=== PATIENT | male | born 1950 | race Caucasian/White ===

== ENCOUNTER 2018-08-30 18:42 | Inpatient (IN) ==
--- NOTE | 2018-08-30 20:05 | XR ---
EXAM DATE: 08/30/2018 8:03 PM EST AGE/SEX: 68 years / Male INDICATIONS: Chest pain. CLINICAL DATA: This is the patient's initial encounter. Patient reports that signs and symptoms have been present for 1 day and indicates a pain score of 5/10. MEDICAL/SURGICAL HISTORY: None. . Cardiac stent. COMPARISON: No prior exams available for comparison. FINDINGS: The lungs are clear without infiltrate, nodule, or mass. There is no appreciable pleural e ffusion for technique. Heart and mediastinum are unremarkable. CONCLUSION: No acute cardiopulmonary disease. Electronically signed by: Remigio Diaz MD Board Certified Radiologist 08/30/2018 8:03 PM EST
[2018-08-30 20:34] LABS: Baso # (Auto) 0.1 th/mm3 (0.0-0.2); Baso % (Auto) 0.9 % (0.0-2.0); Eos # (Auto) 0.1 th/mm3 (0.0-0.4); Eos % (Auto) 1.5 % (0.0-4.0); Hematocrit 43.8 % (39.0-51.0); Lymph # (Auto) 1.5 th/mm3 (1.0-4.8); Lymph % (Auto) 22.2 % (9.0-44.0); Mean Corpuscular HGB Conc 34.3 % (32.0-36.0); Mean Corpuscular Hemoglobin 31.7 pg (27.0-34.0); Mean Corpuscular Volume 92.3 fL (80.0-100.0); Mean Platelet Volume 8.7 fL (7.0-11.0); Mono # (Auto) 0.6 th/mm3 (0.0-0.9); Mono % (Auto) 9.1 % (0.0-8.0); Neut # (Auto) 4.4 th/mm3 (1.8-7.7); Neut % (Auto) 66.3 % (16.0-70.0); Platelet Count 210 th/mm3 (150-450); Red Blood Count 4.75 mil/mm3 (4.50-5.90); Red Cell Distribution Width 13.1 % (11.6-17.2); White Blood Count 6.7 th/mm3 (4.0-11.0)
[2018-08-30 20:44] LABS: Bilirubin,Urine Negative (Negative); Clarity,Urine Clear (Clear); Color,Urine Yellow (Yellw/Straw); Glucose,Urine (UA) Negative (Negative); Leukocyte Esterase,Urine Negative (Negative); Nitrite,Urine Negative (Negative); Specific Gravity,Urine 1.016 (1.002-1.035); Squamous Epithelial Cell,Urine <1 /hpf (0-5)
[2018-08-30 20:48] LABS: Alanine Aminotransferase 72 U/L (12-78)
[2018-08-30 20:50] LABS: Albumin 3.9 g/dL (3.4-5.0); Anion Gap 9 meq/L (5-15); Aspartate Aminotransferase 65 U/L (15-37); Blood Urea Nitrogen 20 mg/dL (7-18); Carbon Dioxide 28.2 meq/L (21.0-32.0); Chloride 105 meq/L (98-107); Glomerular Filtration Rate 67 mL/min (>89); Glucose,Random 81 mg/dL (74-106); Potassium 3.7 meq/L (3.5-5.1); Sodium 142 meq/L (136-145)
[2018-08-30 20:52] LABS: Alkaline Phosphatase 107 U/L (45-117)
[2018-08-30] MEDS ORDERED: Heparin Drip 25,000 UNIT/250 ML BAG IV.CONT PRN (20:59)
[2018-08-30] MEDS ORDERED: Heparin 10,000 UNITS/10 ML Vial (for IV use) IV.PUSH STA (20:59)
--- NOTE | 2018-08-30 21:10 | ED ---
HPI General Chief Complaint: Chest Pain Stated Complaint: Chest Pain Time Seen by Provider: 08/30/18 19:21 Source: patient Mode of arrival: ambulatory Limitations: no limitations History of Present Illness HPI narrative: 68-year-old male came to the emergency with his with history of substernal chest pain that started around 6:30 PM and was at rest. Patient says that it felt like somebody was pushing on the chest. No radiation of the pain. No aggravating or relieving symptoms identified. Patient had less severe chest pain in the same area 1 week back and patient did not decide to come in at that time. He took 1 nitro today which made the pain little better. Currently he is less than 1 out of 10. He says he has a high tolerance for pain. Patient does have history of coronary artery disease. He had one stent placed 5 years back. His team automobile assembler is Dr. Page. Vital signs are stable. Patient took 1 baby aspirin in the morning. Patient says that he had a stress test probably within the last [address] Page. Patient's good friend as well as a team automobile assembler Dr. Vela was here who saw the patient as well. Related Data Home Medications Medication Instructions Recorded Confirmed Multi Vitamin 1 tab PO DAILY 08/30/18 08/30/18 aspirin [Aspir-81] 81 mg PO EVERY OTHER DAY 08/30/18 08/30/18 atorvastatin 40 mg PO DAILY 08/30/18 08/30/18 isosorbide mononitrate 30 mg PO QAM 08/30/18 08/30/18 lansoprazole [Prevacid] 30 mg PO DAILY 08/30/18 08/30/18 montelukast 10 mg PO QPM 08/30/18 08/30/18 ticagrelor 90 mg PO BID 08/30/18 08/30/18 valacyclovir 500 mg PO DAILY 08/30/18 08/30/18 Allergies Allergy/AdvReac Type Severity Reaction Status Date / Time No Known Allergies Allergy Verified 08/30/18 18:47 Review of Systems ROS: all other systems reviewed are negative [facility] Medical History Medical History High cholesterol (Acute) Surgical History Surgical History Stented coronary artery (Acute) Social History Social History Substance History: No History of Abuse Second Hand Smoke Exposure: No Smoking Status: Former smoker Tobacco Type: Cigarettes How Often Do You Have a Drink Containing Alcohol: Never Recent Travel in [facility] within the Last 8 Weeks: No Recent Out of Country Travel within the Last 8 Weeks: No Immunization History Tetanus Immunization: <5 Years Exam Narrative Exam Narrative: GENERAL: Awake, alert, no obvious distress SKIN: Focused skin assessment warm/dry. HEAD: Atraumatic. Normocephalic. EYES: Pupils equal and round. No scleral icterus. No injection or drainage. ENT: No nasal bleeding or discharge. Mucous membranes pink and moist. NECK: Trachea midline. No JVD. CARDIOVASCULAR: Regular rate and rhythm. No murmur appreciated. RESPIRATORY: No accessory muscle use. Clear to auscultation. Breath sounds equal bilaterally. GASTROINTESTINAL: Abdomen soft, non-tender, nondistended. Hepatic and splenic margins not palpable. MUSCULOSKELETAL: No obvious deformities. No clubbing. No cyanosis. No edema. NEUROLOGICAL: Awake and alert. No obvious cranial nerve deficits. Motor grossly within normal limits. Normal speech. PSYCHIATRIC: Appropriate mood and affect; insight and judgment normal. Course Initial Documented Vital Signs Temperature 97.9 F 08/30/18 18:44 Pulse Rate 56 L 08/30/18 18:44 Respiratory Rate 20 08/30/18 18:44 Blood Pressure 171/82 H 08/30/18 18:44 Pulse Oximetry 99 08/30/18 18:44 Last Documented Vital Signs Temperature 97.5 F L 08/31/18 14:01 Pulse Rate 53 L 08/31/18 17:00 Respiratory Rate 16 08/31/18 17:00 Blood Pressure 138/77 08/31/18 17:00 Pulse Oximetry 97 08/31/18 17:00 Medical Decision Making MDM Narrative Medical decision making narrative: 9:13 PM blood test results are back and within acceptable limit. Given his prior cardiac history and this being a possible unstable angina I have started him on heparin bolus and drip. Dr. Vela thought that was reasonable. He contacted Dr. page over the phone and he wishes the patient to be admitted medically and he will seen in the morning. Patient knows about this plan. Medical Screen Exam Complete: Yes Emergency Medical Condition: Yes Lab Data Result diagrams: 08/31/18 03:45 08/31/18 03:45 Lab Results 08/30/18 08/30/18 08/30/18 Range/Units 18:55 19:35 19:35 WBC 6.7 (4.0-11.0) th/mm3 RBC 4.75 (4.50-5.90) mil/mm3 Hgb 15.0 (13.0-17.0) gm/dL Hct 43.8 (39.0-51.0) % MCV 92.3 (80.0-100.0) fL MCH 31.7 (27.0-34.0) pg MCHC 34.3 (32.0-36.0) % RDW 13.1 (11.6-17.2) % Plt Count 210 (150-450) th/mm3 MPV 8.7 (7.0-11.0) fL Neut % (Auto) 66.3 (16.0-70.0) % Lymph % (Auto) 22.2 (9.0-44.0) % [place] % (Auto) 9.1 H (0.0-8.0) % Eos % (Auto) 1.5 (0.0-4.0) % Baso % (Auto) 0.9 (0.0-2.0) % Neut # (Auto) 4.4 (1.8-7.7) th/mm3 Lymph # (Auto) 1.5 (1.0-4.8) th/mm3 [place] # (Auto) 0.6 (0.0-0.9) th/mm3 Eos # (Auto) 0.1 (0.0-0.4) th/mm3 Baso # (Auto) 0.1 (0.0-0.2) th/mm3 WBC Differential . Differential Comment Auto diff final PT (9.8-11.6) sec INR Ratio APTT (23.4-31.7) sec Sodium 142 (136-145) meq/L Potassium 3.7 (3.5-5.1) meq/L Chloride 105 (98-107) meq/L Carbon Dioxide 28.2 (21.0-32.0) meq/L Anion Gap 9 (5-15) meq/L BUN 20 H (7-18) mg/dL Creatinine 1.09 (0.60-1.30) mg/dL Estimated GFR 67 L (>89) mL/min Random Glucose 81 (74-106) mg/dL Hemoglobin A1c (4.3-6.0) % Calcium 9.0 (8.5-10.1) mg/dL Total Bilirubin 0.4 (0.2-1.0) mg/dL AST 65 H (15-37) U/L ALT 72 (12-78) U/L Alkaline Phosphatase 107 (45-117) U/L Troponin I Less than 0.02 L (0.02-0.05) ng/mL Total Protein 7.0 (6.4-8.2) g/dL Albumin 3.9 (3.4-5.0) g/dL Triglycerides (42-150) mg/dL Cholesterol (120-200) mg/dL LDL Cholesterol, Calc (0-99) mg/dL HDL Cholesterol (40.0-60.0) mg/dL Cholesterol/HDL Ratio Ratio Urine Color Yellow (Yellw/Straw) Urine Clarity Clear (Clear) Urine pH 5.0 (5.0-8.5) Ur Specific [place] 1.016 (1.002-1.035) Urine Protein Negative (Neg-Trace) mg/dL Urine Glucose (UA) Negative (Negative) mg/dL Urine Ketones Negative (Negative) mg/dL Urine Occult Blood Small H (Negative) Urine Nitrate Negative (Negative) Urine Bilirubin Negative (Negative) Urine Urobilinogen Less than 2 (Less than 2) mg/dL Ur Leukocyte Esterase Negative (Negative) Urine RBC Less than 1 (0-3) /hpf Urine WBC 1 (0-5) /hpf Ur Squamous Epith Cells <1 (0-5) /hpf Micro UA Comment Culture not ind Ur Microscopic Review Not Reportable Urine Culture Comments Culture not ind 08/30/18 08/31/18 08/31/18 Range/Units 21:20 01:02 03:45 WBC (4.0-11.0) th/mm3 RBC (4.50-5.90) mil/mm3 Hgb (13.0-17.0) gm/dL Hct (39.0-51.0) % MCV (80.0-100.0) fL MCH (27.0-34.0) pg MCHC (32.0-36.0) % RDW (11.6-17.2) % Plt Count (150-450) th/mm3 MPV (7.0-11.0) fL Neut % (Auto) (16.0-70.0) % Lymph % (Auto) (9.0-44.0) % [place] % (Auto) (0.0-8.0) % Eos % (Auto) (0.0-4.0) % Baso % (Auto) (0.0-2.0) % Neut # (Auto) (1.8-7.7) th/mm3 Lymph # (Auto) (1.0-4.8) th/mm3 [place] # (Auto) (0.0-0.9) th/mm3 Eos # (Auto) (0.0-0.4) th/mm3 Baso # (Auto) (0.0-0.2) th/mm3 WBC Differential Differential Comment PT 10.5 (9.8-11.6) sec INR 1.0 Ratio APTT 25.6 49.2 H D (23.4-31.7) sec Sodium (136-145) meq/L Potassium (3.5-5.1) meq/L Chloride (98-107) meq/L Carbon Dioxide (21.0-32.0) meq/L Anion Gap (5-15) meq/L BUN (7-18) mg/dL Creatinine (0.60-1.30) mg/dL Estimated GFR (>89) mL/min Random Glucose (74-106) mg/dL Hemoglobin A1c (4.3-6.0) % Calcium (8.5-10.1) mg/dL Total Bilirubin (0.2-1.0) mg/dL AST (15-37) U/L ALT (12-78) U/L Alkaline Phosphatase (45-117) U/L Troponin I Less than 0.02 L (0.02-0.05) ng/mL Total Protein (6.4-8.2) g/dL Albumin (3.4-5.0) g/dL Triglycerides (42-150) mg/dL Cholesterol (120-200) mg/dL LDL Cholesterol, Calc (0-99) mg/dL HDL Cholesterol (40.0-60.0) mg/dL Cholesterol/HDL Ratio Ratio Urine Color (Yellw/Straw) Urine Clarity (Clear) Urine pH (5.0-8.5) Ur Specific [place] (1.002-1.035) Urine Protein (Neg-Trace) mg/dL Urine Glucose (UA) (Negative) mg/dL Urine Ketones (Negative) mg/dL Urine Occult Blood (Negative) Urine Nitrate (Negative) Urine Bilirubin (Negative) Urine Urobilinogen (Less than 2) mg/dL Ur Leukocyte Esterase (Negative) Urine RBC (0-3) /hpf Urine WBC (0-5) /hpf Ur Squamous Epith Cells (0-5) /hpf Micro UA Comment Ur Microscopic Review Urine Culture Comments 08/31/18 08/31/18 08/31/18 Range/Units 03:45 03:45 03:45 WBC 4.6 (4.0-11.0) th/mm3 RBC 4.42 L (4.50-5.90) mil/mm3 Hgb 14.0 (13.0-17.0) gm/dL Hct 40.6 (39.0-51.0) % MCV 91.8 (80.0-100.0) fL MCH 31.7 (27.0-34.0) pg MCHC 34.5 (32.0-36.0) % RDW 13.0 (11.6-17.2) % Plt Count 181 (150-450) th/mm3 MPV 8.9 (7.0-11.0) fL Neut % (Auto) 60.0 (16.0-70.0) % Lymph % (Auto) 27.5 (9.0-44.0) % [place] % (Auto) 9.4 H (0.0-8.0) % Eos % (Auto) 2.1 (0.0-4.0) % Baso % (Auto) 1.0 (0.0-2.0) % Neut # (Auto) 2.7 (1.8-7.7) th/mm3 Lymph # (Auto) 1.3 (1.0-4.8) th/mm3 [place] # (Auto) 0.4 (0.0-0.9) th/mm3 Eos # (Auto) 0.1 (0.0-0.4) th/mm3 Baso # (Auto) 0.0 (0.0-0.2) th/mm3 WBC Differential . Differential Comment Auto diff final PT (9.8-11.6) sec INR Ratio APTT (23.4-31.7) sec Sodium 145 (136-145) meq/L Potassium 3.6 (3.5-5.1) meq/L Chloride 108 H (98-107) meq/L Carbon Dioxide 28.6 (21.0-32.0) meq/L Anion Gap 8 (5-15) meq/L BUN 18 (7-18) mg/dL Creatinine 0.97 (0.60-1.30) mg/dL Estimated GFR 77 L (>89) mL/min Random Glucose 119 H (74-106) mg/dL Hemoglobin A1c 5.9 (4.3-6.0) % Calcium 8.6 (8.5-10.1) mg/dL Total Bilirubin 0.5 (0.2-1.0) mg/dL AST 54 H (15-37) U/L ALT 94 H (12-78) U/L Alkaline Phosphatase 112 (45-117) U/L Troponin I Less than 0.02 L (0.02-0.05) ng/mL Total Protein 6.2 L D (6.4-8.2) g/dL Albumin 3.5 (3.4-5.0) g/dL Triglycerides (42-150) mg/dL Cholesterol (120-200) mg/dL LDL Cholesterol, Calc (0-99) mg/dL HDL Cholesterol (40.0-60.0) mg/dL Cholesterol/HDL Ratio Ratio Urine Color (Yellw/Straw) Urine Clarity (Clear) Urine pH (5.0-8.5) Ur Specific [place] (1.002-1.035) Urine Protein (Neg-Trace) mg/dL Urine Glucose (UA) (Negative) mg/dL Urine Ketones (Negative) mg/dL Urine Occult Blood (Negative) Urine Nitrate (Negative) Urine Bilirubin (Negative) Urine Urobilinogen (Less than 2) mg/dL Ur Leukocyte Esterase (Negative) Urine RBC (0-3) /hpf Urine WBC (0-5) /hpf Ur Squamous Epith Cells (0-5) /hpf Micro UA Comment Ur Microscopic Review Urine Culture Comments 08/31/18 08/31/18 Range/Units 03:45 10:57 WBC (4.0-11.0) th/mm3 RBC (4.50-5.90) mil/mm3 Hgb (13.0-17.0) gm/dL Hct (39.0-51.0) % MCV (80.0-100.0) fL MCH (27.0-34.0) pg MCHC (32.0-36.0) % RDW (11.6-17.2) % Plt Count (150-450) th/mm3 MPV (7.0-11.0) fL Neut % (Auto) (16.0-70.0) % Lymph % (Auto) (9.0-44.0) % [place] % (Auto) (0.0-8.0) % Eos % (Auto) (0.0-4.0) % Baso % (Auto) (0.0-2.0) % Neut # (Auto) (1.8-7.7) th/mm3 Lymph # (Auto) (1.0-4.8) th/mm3 [place] # (Auto) (0.0-0.9) th/mm3 Eos # (Auto) (0.0-0.4) th/mm3 Baso # (Auto) (0.0-0.2) th/mm3 WBC Differential Differential Comment PT (9.8-11.6) sec INR Ratio APTT 45.0 H (23.4-31.7) sec Sodium (136-145) meq/L Potassium (3.5-5.1) meq/L Chloride (98-107) meq/L Carbon Dioxide (21.0-32.0) meq/L Anion Gap (5-15) meq/L BUN (7-18) mg/dL Creatinine (0.60-1.30) mg/dL Estimated GFR (>89) mL/min Random Glucose (74-106) mg/dL Hemoglobin A1c (4.3-6.0) % Calcium (8.5-10.1) mg/dL Total Bilirubin (0.2-1.0) mg/dL AST (15-37) U/L ALT (12-78) U/L Alkaline Phosphatase (45-117) U/L Troponin I (0.02-0.05) ng/mL Total Protein (6.4-8.2) g/dL Albumin (3.4-5.0) g/dL Triglycerides 128 (42-150) mg/dL Cholesterol 142 (120-200) mg/dL LDL Cholesterol, Calc 63 (0-99) mg/dL HDL Cholesterol 53.7 (40.0-60.0) mg/dL Cholesterol/HDL Ratio 2.64 Ratio Urine Color (Yellw/Straw) Urine Clarity (Clear) Urine pH (5.0-8.5) Ur Specific [place] (1.002-1.035) Urine Protein (Neg-Trace) mg/dL Urine Glucose (UA) (Negative) mg/dL Urine Ketones (Negative) mg/dL Urine Occult Blood (Negative) Urine Nitrate (Negative) Urine Bilirubin (Negative) Urine Urobilinogen (Less than 2) mg/dL Ur Leukocyte Esterase (Negative) Urine RBC (0-3) /hpf Urine WBC (0-5) /hpf Ur Squamous Epith Cells (0-5) /hpf Micro UA Comment Ur Microscopic Review Urine Culture Comments Imaging Data Radiologist's impression: Chest X-Ray 08/30/18 19:22 CONCLUSION: No acute cardiopulmonary disease. ECG Data Attestation: I personally reviewed and interpreted this ECG as follows: Interpretation: Twelve-lead EKG was reviewed by me. Normal sinus rhythm, normal axis, bradycardia, nonspecific ST-T wave changes. Heart rate of 54 bpm. Discharge Plan Discharge Disposition Patient Disposition: ED Admit(ED Internal Use Only) Discharge Condition Condition: Stable Discharge Order Discharge Orders: Discharge Order (Routine); Ordered 08/31/18 Ordered By: Finn Meade ED Use Only Admit Order (Routine); Ordered 08/30/18 Ordered By: Pretty Damon Physicians Team ED Provider: Pretty Damon Primary Care Provider: Feroz Tirado Attending Provider: Finn Meade Other Providers: Boris Page Status ED Status: Left Department Discharge Information Discharge Date/Time: 08/31/18 03:42
[2018-08-30] MEDS ORDERED: Bisacodyl 10 MG Supp RECTAL PRN (21:36)
[2018-08-30] MEDS ORDERED: Acetaminophen 325 MG Tablet PO PRN (21:36)
[2018-08-30] MEDS ORDERED: Morphine Sulfate Inj 2 MG/ML Vial IV.PUSH PRN (21:36)
[2018-08-30 21:37] LABS: Activated Partial Thrombo Time 25.6 sec (23.4-31.7); Prothrombin Time 10.5 sec (9.8-11.6)
--- NOTE | 2018-08-30 21:39 | P.HPIM ---
History of Present Illness Primary Care Physician: Feroz Tirado History of Present Illness: This is a 68-year-old male with PMH of HTN, Hyperlipidemia and CAD s/p Stent who presented to the ER w/ c/o chest pain while driving. Pt states he was on his way to a libertarian with his when he had sudden onset of substernal chest pain, severe, 10/10, non-radiating. Notes pain similar to previous episode w/ stent placement 5yrs ago at which time he turned around and drove here. Also reports episode of chest pain approx 1wk ago which resolved spontaneously after taking ASA. Follows w/ Dr. Page, seen in ER by Dr. Vela, w/ recommendation for Heparin gtt and eval in am for possible cath. Currently chest pain free. No fever, chills or cough. On arrival, BP 171/82, HR 56, O2 sat 99% on RA, Afebrile. CBC unremarkable. INR 1.0. Chemistry unremarkable except for BUN 20, GFR 67. Troponin negative. UA negative. CXR with no acute findings. Diagnosis (1) Unstable angina: (2) HTN (hypertension): (3) Bradycardia: (4) Dehydration: Review of Systems PAST FAMILY HISTORY: Reviewed. No h/o DM or CAD Review of Systems: all other systems reviewed are negative [facility] Medical History Medical History High cholesterol (Acute) Surgical History Surgical History Stented coronary artery (Acute) Social History Social History Smoking Status: Never smoker How Often Do You Have a Drink Containing Alcohol: Never Recent Travel in [facility] within the Last 8 Weeks: No Recent Out of Country Travel within the Last 8 Weeks: No Immunization History Tetanus Immunization: <5 Years Medications and Allergies Allergies Allergy/AdvReac Type Severity Reaction Status Date / Time No Known Allergies Allergy Verified 08/30/18 18:47 Home Medications Medication Instructions Recorded Confirmed Type Multi Vitamin 1 tab PO DAILY 08/30/18 08/30/18 History aspirin [Aspir-81] 81 mg PO EVERY OTHER DAY 08/30/18 08/30/18 History atorvastatin 40 mg PO DAILY 08/30/18 08/30/18 History isosorbide mononitrate 30 mg PO QAM 08/30/18 08/30/18 History lansoprazole [Prevacid] 30 mg PO DAILY 08/30/18 08/30/18 History montelukast 10 mg PO QPM 08/30/18 08/30/18 History ticagrelor 90 mg PO BID 08/30/18 08/30/18 History valacyclovir 500 mg PO DAILY 08/30/18 08/30/18 History Active Medications: Active Medications Acetaminophen (Tylenol) 650 mg PO Q4H PRN PRN Reason: Temp > 100.4 Aspirin (Ecotrin) 81 mg PO EVERY OTHER DAY MAGUE Atorvastatin Calcium (Lipitor) 40 mg PO DAILY MAGUE Heparin Sodium/Dextrose (Heparin/D5w 25,000 U/250 Ml) 25,000 unit in 250 mls @ 0 mls/hr IV.CONT TITRATE PRN; Protocol PRN Reason: Per Protocol Sodium Chloride (Ns Flush) 2 ml IV.FLUSH UNSCH PRN PRN Reason: FLUSH AFTER USING IV ACCESS Physical Exam Vital signs: Vital Signs 08/30/18 18:44 08/30/18 19:04 08/30/18 19:27 Temperature 97.9 F Pulse Rate 56 L 52 L Respiratory Rate 20 15 Blood Pressure 171/82 H 158/84 H Pulse Oximetry 99 99 99 Intake & Output 08/30/18 08/30/18 08/31/18 06:59 18:59 06:59 Weight 77.111 kg Narrative: PE: GENERAL: Very pleasant middle-aged white male in no acute distress. at bedside. SKIN: Focused skin assessment warm and dry. HEENT: PERRLA, EOMI. No scleral icterus or conjunctival pallor. No lid lag or facial droop. CARDIOVASCULAR: Regular rate and rhythm. No obvious murmurs to auscultation. No chest tenderness to palpation. RESPIRATORY: No obvious rhonchi or wheezing. Clear to auscultation. Breath sounds equal bilaterally. GASTROINTESTINAL: Abdomen soft, non-tender, nondistended. BS normal. MUSCULOSKELETAL: Extremities without clubbing, cyanosis, or edema. No obvious deformities. NEUROLOGICAL: Awake, alert and oriented x4. No focal neurologic deficits. Moving both upper and lower extremities spontaneously. PSYCHIATRIC: Appropriate mood and affect. Insight and judgment normal. Results Labs CBC & Chem 7: 08/30/18 19:35 08/30/18 19:35 Imaging Impressions Chest X-Ray 08/30/18 19:22 CONCLUSION: No acute cardiopulmonary disease. Caprini VTE Risk Assessment Caprini VTE Risk Assessment: No/Low Risk (score <= 1) Caprini Risk Assessment Model: Point Value = 1 Point Value = 2 Point Value = 3 Point Value = 5 Age 41-60 Minor surgery BMI > 25 kg/m2 Swollen legs Varicose veins or History of unexplained or recurrent spontaneous Oral contraceptives or hormone replacement Sepsis (< 1 month) Serious lung disease, including pneumonia (< 1 month) Abnormal pulmonary function Acute myocardial infarction Congestive heart failure (< 1 month) History of inflammatory bowel disease Medical patient at bed rest Age 61-74 Arthroscopic surgery Major open surgery (> 45 min) Laparoscopic surgery (> 45 min) Malignancy Confined to bed (> 72 hours) Immobilizing plaster cast Central venous access Age >= 75 History of VTE Family history of VTE Factor V Leiden Prothrombin [id number] Lupus anticoagulant Anticardiolipin antibodies Elevated serum homocysteine Heparin-induced thrombocytopenia Other congenital or acquired thrombophilia Stroke (< 1 month) Elective arthroplasty Hip, pelvis, or leg fracture Acute spinal cord injury (< 1 month) Prophylaxis Regimen: Total Risk Factor Score Risk Level Prophylaxis Regimen 0-1 Low Early ambulation 2 Moderate Order ONE of the following: *Sequential Compression Device (SCD) *Heparin 5000 units SQ BID 3-4 Higher Order ONE of the following medications: *Heparin 5000 units SQ TID *Enoxaparin/Lovenox 40 mg SQ daily (WT < 150 kg, CrCl > 30 mL/min) *Enoxaparin/Lovenox 30 mg SQ daily (WT < 150 kg, CrCl > 10-29 mL/min) *Enoxaparin/Lovenox 30 mg SQ BID (WT < 150 kg, CrCl > 30 mL/min) AND/OR *Sequential Compression Device (SCD) 5 or more Highest Order ONE of the following medications: *Heparin 5000 units SQ TID (Preferred with Epidurals) *Enoxaparin/Lovenox 40 mg SQ daily (WT < 150 kg, CrCl > 30 mL/min) *Enoxaparin/Lovenox 30 mg SQ daily (WT < 150 kg, CrCl > 10-29 mL/min) *Enoxaparin/Lovenox 30 mg SQ BID (WT < 150 kg, CrCl > 30 mL/min) AND *Sequential Compression Device (SCD) Assessment and Plan (1) Unstable angina: Code(s): I20.0 - Unstable angina Status: Acute (2) HTN (hypertension): Code(s): I10 - Essential (primary) hypertension Status: Acute (3) Bradycardia: Code(s): R00.1 - Bradycardia, unspecified Status: Acute (4) Dehydration: Code(s): E86.0 - Dehydration Status: Acute Plan A/P: 1. Unstable Angina: acute onset substernal chest pain at rest, similar episode 1wk ago, h/o CAD s/p Stent, follows w/ Dr. Page as outpatient, s/p eval in ER w/ recommendation for Heparin gtt and eval in am for likely cath, NPO after midnight, NTG/Morphine prn, initial trop negative, check serial cardiac enzymes to eval for acute ischemia. Resume ASA and Statin, no B- veronica in light of bradycardia. 2. Bradycardia: HR 50's, asymptomatic, no c/o lightheadedness, hold B-veronica , monitor on Telemetry. 3. HTN: Uncontrolled, BP 170's on arrival, likely compounded by chest pain, monitor BP, resume home meds, antihypertensives as needed for BP >180 4. Dehydration: BUN 20, GFR 67, U/a negative for UTI, IVF for hydration, monitor I/O, repeat labs in am. 5. DVT Prophylaxis: Heparin gtt 6. Social work for DC planning as needed. 7. Case discussed at length with the ER physician, labs/records/imaging reviewed by me.
[2018-08-30] MEDS ORDERED: Sod Chloride 0.9% Inj 1,000 ML IV.CONT SCH (21:45)
--- NOTE | 2018-08-30 22:22 | ECG ---
Date Performed: 08/30/2018 Time Performed: 19:01:14 PTAGE: 68 years EKG: SINUS BRADYCARDIA BORDERLINE ECG Since the PREVIOUS TRACING , no significant change noted DOCTOR: Boris Page Interpretating Date/Time 08/30/2018 22:21:02
[2018-08-30] MEDS: Isosorbide Mononitrate 30 MG ER 24HR Tablet (Imdur) PO SCH (23:30)
[2018-08-31 04:16] VITALS: RESP 16
[2018-08-31 05:04] LABS: Eos # (Auto) 0.1 th/mm3 (0.0-0.4); Eos % (Auto) 2.1 % (0.0-4.0); Hematocrit 40.6 % (39.0-51.0); Lymph # (Auto) 1.3 th/mm3 (1.0-4.8); Lymph % (Auto) 27.5 % (9.0-44.0); Mean Corpuscular HGB Conc 34.5 % (32.0-36.0); Mean Corpuscular Hemoglobin 31.7 pg (27.0-34.0); Mean Corpuscular Volume 91.8 fL (80.0-100.0); Mean Platelet Volume 8.9 fL (7.0-11.0); Mono # (Auto) 0.4 th/mm3 (0.0-0.9); Mono % (Auto) 9.4 % (0.0-8.0); Neut # (Auto) 2.7 th/mm3 (1.8-7.7); Platelet Count 181 th/mm3 (150-450); Red Blood Count 4.42 mil/mm3 (4.50-5.90); White Blood Count 4.6 th/mm3 (4.0-11.0)
[2018-08-31 05:13] LABS: Albumin 3.5 g/dL (3.4-5.0); Anion Gap 8 meq/L (5-15); Aspartate Aminotransferase 54 U/L (15-37); Blood Urea Nitrogen 18 mg/dL (7-18); Calcium 8.6 mg/dL (8.5-10.1); Carbon Dioxide 28.6 meq/L (21.0-32.0); Chloride 108 meq/L (98-107); Glomerular Filtration Rate 77 mL/min (>89); Glucose,Random 119 mg/dL (74-106); Potassium 3.6 meq/L (3.5-5.1); Sodium 145 meq/L (136-145)
[2018-08-31 05:14] LABS: Alanine Aminotransferase 94 U/L (12-78)
[2018-08-31 05:18] LABS: Alkaline Phosphatase 112 U/L (45-117); Total Protein 6.2 g/dL (6.4-8.2)
[2018-08-31] MEDS: Isosorbide Mononitrate 30 MG ER 24HR Tablet (Imdur) PO SCH (06:04)
--- NOTE | 2018-08-31 08:38 | P.PNIM ---
Subjective Interval history: Follow-up angina no further chest pain. Complains of slight frontal headache no dizziness, visual changes, nausea and focal weakness. Currently on heparin drip Physical Exam Vital signs: Vital Signs 08/30/18 18:44 08/30/18 19:04 08/30/18 19:27 Temperature 97.9 F Pulse Rate 56 L 52 L Respiratory Rate 20 15 Blood Pressure 171/82 H 158/84 H Pulse Oximetry 99 99 99 08/30/18 21:52 08/30/18 23:00 08/31/18 04:00 Temperature 97.5 F L Pulse Rate 55 L 88 47 L Respiratory Rate 15 20 16 Blood Pressure 140/76 116/72 135/77 Pulse Oximetry 98 98 95 08/31/18 05:00 08/31/18 06:00 Temperature Pulse Rate 48 L 49 L Respiratory Rate Blood Pressure Pulse Oximetry Intake & Output 08/30/18 08/31/18 08/31/18 18:59 06:59 18:59 Output Total 280 / 280 Balance -280 / -280 Weight 77.111 kg 77 kg Output: Urine 280 / 280 Narrative: GENERAL: Very pleasant middle-aged white male in no acute distress. SKIN: Focused skin assessment warm and dry. CARDIOVASCULAR: Regular rate and rhythm. No obvious murmurs to auscultation. No chest tenderness to palpation. RESPIRATORY: No obvious rhonchi or wheezing. Clear to auscultation. Breath sounds equal bilaterally. GASTROINTESTINAL: Abdomen soft, non-tender, nondistended. BS normal. MUSCULOSKELETAL: Extremities without clubbing, cyanosis, or edema. No obvious deformities. NEUROLOGICAL: Awake, alert and oriented x4. No focal neurologic deficits. Moving both upper and lower extremities spontaneously. Results Labs CBC & Chem 7: 08/31/18 03:45 08/31/18 03:45 Imaging Imaging: Impressions Chest X-Ray 08/30/18 19:22 CONCLUSION: No acute cardiopulmonary disease. Assessment and Plan (1) Unstable angina: Code(s): I20.0 - Unstable angina Status: Acute (2) HTN (hypertension): Code(s): I10 - Essential (primary) hypertension Status: Acute (3) Bradycardia: Code(s): R00.1 - Bradycardia, unspecified Status: Acute (4) Dehydration: Code(s): E86.0 - Dehydration Status: Acute Plan 1. Unstable Angina in a patient with history of CAD status post stent. Ruled out for [place]. Currently pain-free. Keep n.p.o. for possible cardiac catheterization, continue aspirin, statin, nitrate and heparin drip. No B- veronica in light of bradycardia. 2. Bradycardia: HR 50's, asymptomatic, no c/o lightheadedness, hold B-veronica , monitor on Telemetry. 3. HTN: Uncontrolled, BP 170's on arrival, likely compounded by chest pain, monitor BP, resume home meds, antihypertensives as needed for BP >180. Improved 4. Dehydration: BUN 20, GFR 67, U/a negative for UTI, IVF for hydration, monitor I/O, repeat labs in am. 5. Mild frontal headache. Nonfocal. This could be related to nitrate. Tylenol as needed. Monitor DVT Prophylaxis: Heparin gtt Progress Note: Quality VTE Deep Vein Thrombosis/Pulmonary Embolism Present on Admission: No
[2018-08-31] MEDS ORDERED: MULTI VITAMIN PO SCH (09:00)
[2018-08-31] MEDS ORDERED: Senna/Docusate Sodium 8.6/50 MG Tablet PO SCH (09:00)
[2018-08-31] MEDS ORDERED: valACYclovir 500 MG Tab PO SCH (09:00)
[2018-08-31] MEDS ORDERED: Heparin/NS PF Inj 1,500 ML ONE (12:52)
[2018-08-31] MEDS ORDERED: fentaNYL Citrate Inj 100 MCG/2 ML Ampul ONE (12:52)
[2018-08-31] MEDS ORDERED: Heparin 10,000 UNITS/10 ML Vial (for IV use) ONE (12:53)
[2018-08-31 13:36] LABS: Hemoglobin A1c 5.9 % (4.3-6.0)
--- NOTE | 2018-08-31 13:41 | CATHPROC ---
[facility] HIS Report Study Information Study Number Admission Scheduled Start Study Start [id number] Aug 30 2018 9:40PM 08/31/2018 Aug 31 2018 12:42PM [facility] Service Cardiac Catheterization Admit Source Facility Department Other [facility] - Dining [facility] Steward Physician and Clinical Staff Initial Boris Pierson Insurance Claims Assistant Stephanie Joseph Insurance Claims Assistant Jeremiah PatelRN Other cathlab, cathlab Recorder Jerrod Painter RCIS(BS) Scrub Rosalee Bradley RT(R) Procedures Performed Procedure Location (Site) Vessel Name Angiogram LV LV Ventricle Coronary Angiograms LCA Left Coronary Coronary Angiograms RCA Right Coronary L Heart Cath Equipment Time Piping Manager Description Size Mfg Part Number Used/Scraped TRANSDUCER, TRBuzzeroAVE [id number] 12:43 Deemelo WHEELER * Used W/STOCKCOCK *[id number] 13:30 [employer] MEDICAL VASCADE, FR5 CLOSURE SYSTEM FR 5 Used *[id number] [id number] *[id number] 534-520T *[id number] [id number] *[id number] 12:43 [employer] BLANKET,WARM AIR CCL * Used *[id number] 12:43 [employer] PACK, CCL CUSTOM * Used *[id number] 12:43 [employer] PACER PEN, SKIN DUAL W/ RULER * Used *[id number] 12:43 vIPtela WIRE, 3MMJ .035 180CM 180CM Used *[id number] PROBE COVER, STERILE [id number] 12:43 [employer] * Used ULTRASOUND W/ GEL *[id number] 12:43 NAMIC MANIFOLD, 4 PORT * Used *[id number] 12:43 NAMIC TUBING, HIGH PRESSURE 48" 48" Used *[id number] 12:43 NYCOMED OMNIPAQUE, 350 MG, 150ML 150ML [id number] Used 13:18 NYCOMED OMNIPAQUE, 350 MG, 50ML 50ML [id number] Used [id number] 12:43 TERUMO MEDICAL SHEATH, FR5 TERUMO (10CM) FR 5 Used *[id number] History: Current Medications Medication Dosage/Unit Route Frequency Last Date/Time Taken Statins (any) Imdur ASA History: Allergies Allergy Reaction No Known Allergies History: Risk Factors Family History of Hypertension Dyslipidemia Premature CAD Yes Yes Yes Prior PCI Prior PCIDate Prior CABG Yes 07/09/2013 No Cerebrovascular Peripheral Artery Chronic Lung On Dialysis Diabetes Disease Disease Disease No No No No No History: Symptoms/Diagnosis Selection Items Chest pain History: Other Disease Selection Items CAD HTN History: [place]/CV Data Previous Cath Date 07/09/2013 History: Other Current Smoker Method Quit Packs a Day Years Used Pack Years No Cigarettes 45 Years Ago 2 6 12 Labs Hgb (g/dl) Hct (%) WBC (l/cumm) Platelets (thousands) 11.60-17.00 35.00-51.00 4.00-11.00 150.00-450.00 14.0 40.6 4.6 181 Glucose (mg/dl) BUN (mg/dl) Creatinine (mg/dl) BUN:Creatinine (1:x) 74.00-106.00 7.00-18.00 0.50-1.30 10.00-20.00 119 18 0.9 20 Na (meq/l) K (meq/l) 136.00-145.00 3.50-5.10 145 3.6 INR (PTT:PT) 0.90-1.10 1 Troponin I (ng/ml) CPK-MB (ng/ML) 0.02-0.05 0.50-3.60 0.02 Not Drawn Medication Medication Total Dose (Bolus/Oral) Medication Total Dosage/Unit 1% XYLOCAINE 20 mL FENTANYL 25 mcg VERSED 3 mg Medications (Bolus/Oral) Medication Time Given Dosage/Unit Administered By Reason VERSED 08/31/2018 1:08:03 PM 2 mg Jorge, Jeremiah 2 mg VERSED given in lab by Jeremiah Patel RN in Left Antecubital via Peripheral IV. Ordered by Boris Singh. FENTANYL 08/31/2018 1:08:14 PM 25 mcg Jorge, Jeremiah 25 mcg FENTANYL given in lab by Jeremiah Patel RN in Left Antecubital via Peripheral IV. Ordered by Boris Cuadra. 1% XYLOCAINE 08/31/2018 1:10:39 PM 20 mL Boris Page 20 mL 1% XYLOCAINE given in lab by Boris Page in Right Groin via Subcutaneous. Ordered by Boris Singh. VERSED 08/31/2018 1:11:54 PM 1 mg Jorge, Jeremiah 1 mg VERSED given in lab by Jeremiah Patel RN in Left Antecubital via Peripheral IV. Ordered by Boris Singh. Medication (Drip) Medication Time Given Dosage/Unit Concentration/Unit Diluent (ml) Solution IV Solutions 08/31/2018 12:55:20 PM 0 mL (IV) 1000 NaCl .9 Patient arrived on IV Solutions in Left Antecubital via Peripheral IV. Pump/Drip Flow = 20 ml/hr usin g NaCl .9. Initial Case Assessment Cardiovascular HR Rhythm NIBP Chest Pain 54 didi 148/80 0 Edema Present Skin color Skin None Normal Warm Dry Circulatory - Right Pulses Dorsalis Pedis Femoral 3 3 Scale (0,1,2,3,4,d) Circulatory - Left Pulses Dorsalis Pedis Femoral 3 3 Scale (0,1,2,3,4,d) Neurological State Oriented to time-place- Alert Moves all extremities person Respiration - General Respiration Rate SpO2 (%) (B/min) 15 97 Final Case Assessment Cardiovascular HR Rhythm NIBP Chest Pain 58 didi 129/70 0 Edema Present Skin color Skin None Normal Warm Dry Circulatory - Right Pulses Dorsalis Pedis Femoral 3 3 Scale (0,1,2,3,4,d) Circulatory - Left Pulses Dorsalis Pedis Femoral 3 3 Scale (0,1,2,3,4,d) Neurological State Oriented to time-place- Alert Moves all extremities person Respiration - General Respiration Rate SpO2 (%) (B/min) 15 97 Chronological Log Time Study Chronological Log 12:55:05 Patient arrived via Bed. Heparin drip @9 ml/hr DCed per MD upon pickup 12:55:06 Patient Name, D.O.B, / Armband Verified By R.N. 12:55:06 Consent signed by the physician and the patient and verified by the Dining Car Steward staff. 12:55:06 Pre-op and post- op instructions given; patient acknowledges understanding of instructions. 12:55:07 Presedation assessment performed by Dining Car Steward RN. 12:55:11 Patient has been NPO for More than 6Hrs. 12:55:11 Skin Breakdown-none per patient 12:55:18 Patient Warmer Placed on the Table. 12:55:19 Disposable Defibrillator Pads Placed On Patient. 12:55:19 A # 20 IV was noted in the Antecubital (right). Grade = 0 12:55:20 Patient arrived on IV Solutions in Left Antecubital via Peripheral IV. Pump/Drip Flow = 20 ml/hr using NaCl .9. 12:55:20 History and physical on the chart or being dictated. 13:03:18 Reference ECG taken Assessment: Initial Case, HR=54 BPM, Rhythm=didi, OGST=611/80 mmhg, Chest Pain=0, Edema=None, Color=Normal, Skin = Warm, Dry Right Pulses: Bg Ped=3, Femoral=3 13:03:22 Left Pulses: Bg Ped=3, Femoral=3 Neurological: State=Alert, Ox3, LEON Respiration: Resp=15 B/min, SpO2=97 % Vitals capture started with the following parameters, Patient=Adult, Interval=5 min, Initial Pr nwrbzs=570 mmHg, ::30 Deflation Rate=5 mmHg, Cuff placed on Left Arm 13:03:45 Bilateral groins prepped with 2% chlorhexidine, and draped after a 3 minute waiting time. Vitals capture started with the following parameters, Patient=Adult, Interval=5 min, Initial Pr lkygez=342 mmHg, 04:18 Deflation Rate=5 mmHg, Cuff placed on Left Arm Vitals capture started with the following parameters, Patient=Adult, Interval=5 min, Initial Pr itzciq=321 mmHg, :05:08 Deflation Rate=5 mmHg, Cuff placed on Left Arm 13:05:22 MD arrived. 13:05:52 HR=58 bpm, BQSE=353/80 mmhg, SpO2=99.0 %, Resp=19 B/min, Pain=0, Devora=10, Olivo=2 13:08:01 Contrast Scanned 13:08:01 Immediate Presedation assesment performed by physician. 13:08:03 2 mg VERSED given in lab by Jeremiah Patel RN in Left Antecubital via Peripheral IV. Ordered by Boris Page. 13:08:14 25 mcg FENTANYL given in lab by Jeremiah Patel RN in Left Antecubital via Peripheral IV. Ord ered by Boris Page. 13:10:24 Pressure channel 1 zeroed. Time Out. Correct patient, correct procedure, correct physician, labs, allergies, and equipment verified with label rewinder 13:10:30 team present. Fire risk assesment completed (see hard stop sheet for coding). Time Out Conc urred by MD and individual staff in procedure. 13:10:37 Case Start 13:10:39 20 mL 1% XYLOCAINE given in lab by Boris Page in Right Groin via Subcutaneous. Ordered by Boris Page. 13:10:53 HR=57 bpm, UHWG=004/74 mmhg, SpO2=95.0 %, Resp=19 B/min, Pain=0, Devora=10, Olivo=2 13:11:54 1 mg VERSED given in lab by Jeremiah Patel, RN in Left Antecubital via Peripheral IV. Ordered by Boris Page. 13:14:08 Access site was Right Femoral Artery. 13:14:11 A SHEATH, FR5 TERUMO (10CM) FR 5 was advanced into the Fem Art (right) using the Percutaneo us technique. A PIGTAIL ANG. INFINITI CATHETER FR 5 was advanced over a wire. OMNIPAQUE, 350 MG, 150ML 150ML was used 13:15:06 for injections. 13:16:25 HR=60 bpm, NNDY=815/75 mmhg, SpO2=94.0 %, Resp=14 B/min, Pain=0, Devora=10, Olivo=2 Recorded Pressure: LV, HR=59, Condition=Condition 1 13:18:00 (Left Ventricle) LV 133/3/6 13:18:12 The LV was injected at 10 cc/sec for a total of 30. OMNIPAQUE, 350 MG, 50ML 50ML used. Recorded Pressure: LV, Ao, HR=59, Condition=Condition 1 13:19:53 (Left Ventricle) LV 120/4/7, (Aorta) Ao 108/59/79 13:20:15 Catheter was removed A JL 4.0 INFINITI CATHETER FR 5 was advanced over a wire. OMNIPAQUE, 350 MG, 150ML 150ML was us ed for 13:20:15 injections. 13:20:49 HR=55 bpm, VLJV=369/68 mmhg, SpO2=94.0 %, Resp=12 B/min, Pain=0, Devora=10, Olivo=2 Recorded Pressure: Ao, HR=53, Condition=Condition 1 13:21:40 (Aorta) Ao 111/58/80 13:21:43 The LCA was injected and visualized at various angles. OMNIPAQUE, 350 MG, 150ML 150ML used . 13:23:57 Catheter was removed A AR MOD INFINITI CATHETER FR 5 was advanced over a wire. OMNIPAQUE, 350 MG, 150ML 150ML was us ed for 13:23:57 injections. 13:25:36 The RCA was injected and visualized at various angles. OMNIPAQUE, 350 MG, 150ML 150ML used . 13:25:46 HR=61 bpm, QZCU=947/70 mmhg, SpO2=95 %, Resp=9 B/min, Pain=0, Devora=10, Olivo=2 13:26:16 Catheter was removed 13:26:22 Case End (Physician broke scrub) 13:27:10 An injection in the Fem Art (right) was made through the SHEATH, FR5 TERUMO (10CM) FR 5. 13:29:43 VASCADE, FR5 CLOSURE SYSTEM FR 5 placement in the Fem Art (right) Assessment: Final Case, HR=58 BPM, Rhythm=didi, OKNC=323/70 mmhg, Chest Pain=0, Edema=None, Color=Normal, Skin = Warm, Dry Right Pulses: Bg Ped=3, Femoral=3 13:29:53 Left Pulses: Bg Ped=3, Femoral=3 Neurological: State=Alert, Ox3, LEON Respiration: Resp=15 B/min, SpO2=97 % 13:30:02 Catheter(s) removed without difficulty 13:30:03 Sterile dressing applied to site 13:30:04 No case complications noted. 13:30:04 Cine recording checked. 13:30:05 Bedside Report will be given. 13:30:08 A Left Heart Cath was performed. 13:30:49 HR=55 bpm, JJBS=329/67 mmhg, SpO2=92.0 %, Resp=12 B/min, Pain=0, Devora=10, Olivo=2 13:35:48 HR=53 bpm, WGYB=338/70 mmhg, SpO2=92.0 %, Resp=12 B/min, Pain=0, Devora=10, Olivo=2 13:41:00 Patient moved to stretcher End Study - Contrast Media Used In Study Contrast Total Opened (mL) Total Used (mL) Total Wasted (mL) Omnipaque 350 70 70 0 End Study - Maximum Contrast Load Max Contrast Load (mL) 427.8 End Study - Radiation Exposure Fluoro Time Fluoro Dose (mGy) Cine Dose (uGym2) (minutes) 1.9 656 4803 End Study - Sheaths Sheaths Pulled By Sheath Hold Time (min) Rosalee Bradley 5 End Study - Patient Disposition Complications Transferred To Interventional Outcome No Telemetry Bed No attempt made
[2018-08-31 14:24] LABS: Chol/HDL Ratio 2.64 Ratio; HDL Cholesterol 53.7 mg/dL (40.0-60.0)
--- NOTE | 2018-08-31 14:41 | MB ---
cc: Boris Page MD DATE: 08/31/2018 HISTORY OF PRESENT ILLNESS: Mr. Crowley is a 68-year-old white male known to my practice with a history of hypertension, dyslipidemia, coronary artery disease and LAD stenting. He was driving out of town and he suddenly developed severe substernal chest pain without radiation. He turned around and came to the emergency room. The pain lasted about 30-40 minutes. It was similar to the pain he had prior to his LAD stenting several years ago. He had an episode of chest pain about a week ago, which resolved with aspirin. He was started him on IV heparin. He has not had any recurrence of his pain. His blood pressure was elevated. PAST MEDICAL HISTORY: Positive for coronary artery disease, with LAD stenting using 2.25 Resolute Integrity drug-eluting stent. History of hypertension, dyslipidemia. MEDICATIONS: Include: 1. Brilinta. 2. Aspirin. 3. Atorvastatin. 4. Isosorbide mononitrate. 5. Acyclovir. 6. Montelukast. 7. Multivitamin. 8. Lansoprazole. ALLERGIES: NONE. SOCIAL HISTORY: The patient does not smoke. He does not drink alcohol. He smoked in the past. FAMILY HISTORY: Negative for heart disease. REVIEW OF SYSTEMS: Otherwise negative. PHYSICAL EXAMINATION: VITAL SIGNS: Blood pressure 132/73, pulse 56 and regular. HEENT: Negative, 2+. NECK: Carotids, no bruits. LUNGS: Clear. HEART: Regular with no murmur, gallop or rub. ABDOMEN: Soft. No bruits. EXTREMITIES: Without edema, 2+ pulses. NEUROLOGIC: Grossly nonfocal. LABORATORY DATA: EKG was reviewed and showed sinus bradycardia. No acute changes. LABORATORY DATA: Hemoglobin 14.0. Potassium 3.6, creatinine 1.0. AST 54, ALT 94. Troponin negative x3. DIAGNOSES: 1. Unstable angina. 2. Coronary artery disease with a history of coronary stenting. 3. Hypertension. 4. Dyslipidemia. DISPOSITION: Mr. Crowley will undergo cardiac catheterization and coronary intervention if necessary. He understands the risks and benefits, and wishes to proceed. We will continue current therapy including aggressive modification of his cardiac risk factors. Boris Page MD OQ/ct , 02:00 PM , 02:10 PM [place]
--- NOTE | 2018-08-31 15:44 | MR ---
cc: Boris Page MD DATE: 08/31/2018 INDICATION: 1. Unstable angina, class 4 angina. 2. Coronary artery disease. 3. History of myocardial infarction and LAD stenting. PROCEDURE PERFORMED: 1. Retrograde left heart catheterization with left ventriculography and selective coronary angiography. 2. Moderate sedation. ACCESS SITE: Right femoral artery. EQUIPMENT USED: 5-Croatian pigtail, 5-Croatian JL4 and AR modified coronary catheters. MEDICATIONS: Versed IV, fentanyl IV. CONTRAST: Omnipaque 85 mL COMPLICATIONS: None. ESTIMATED BLOOD LOSS: Less than 10 mL METHOD OF HEMOSTASIS: Vascade closure. RESULTS: A. HEMODYNAMICS: Heart rate 57 beats per minute. Left ventricular end-diastolic pressure 4 mmHg. Left ventricle 120/4, aorta 110/58/80. B. LEFT VENTRICULOGRAPHY: Ejection fraction 65%. Wall motion normal. No mitral regurgitation. C. CORONARY ANGIOGRAPHY: Left main coronary artery is patent. Left anterior descending artery has patent stent in the proximal portion, there is 30% stenosis in the mid portion and 40% stenosis in the mid-distal portion. The first septal branch is a branching vessel with a 70% ostial stenosis. First diagonal artery is a large vessel with 30% proximal stenosis. Left circumflex artery is patent. OM1 is a large branching vessel which is patent. Right coronary artery is a dominant vessel with 20% stenosis of the mid portion and 30% stenosis of the distal portion prior to the bifurcation. PDA patent. PLV is a large vessel which is patent. DIAGNOSES: 1. Mild to moderate nonobstructive coronary artery disease. 2. Well preserved left ventricular systolic function. DISPOSITION: The patient can be reassured about his cardiac status. His study showed no evidence of significant obstructive coronary artery disease and preserved left ventricular systolic function. His symptoms were likely of noncardiac origin. I recommend to continue his current medical program including aggressive modifications of his cardiac risk factors. He will be discharged home later today and I will see him back for followup in our office after discharge. Boris Page MD OPenny/belinda/vi , 01:39 PM , 01:45 PM [facility]
[2018-08-31 15:59] VITALS: TEMP 97.5
[2018-08-31 17:29] VITALS: BP 138/77; PULSE 53; O2SAT 97
[2018-08-31] MEDS ORDERED: Montelukast 10 MG Tablet PO SCH (18:00)
[2018-08-31] MEDS ORDERED: Iohexol 350 MG/ML 100 ML Vial (for Cath Lab) IV.SIG ONE (18:17)
--- NOTE | 2018-08-31 18:26 | ECG ---
Date Performed: 08/31/2018 Time Performed: 01:05:29 PTAGE: 68 years EKG: SINUS BRADYCARDIA WITH FIRST DEGREE AV BLOCK POSSIBLE INFERIOR MYOCARDIAL INFARCTION ABNORM AL ECG Since the PREVIOUS TRACING , no significant change noted DOCTOR: Boris Page Interpretating Date/Time 08/31/2018 18:25:06
== END 2018-08-31 18:18 | disposition home or self-care (01) | DRG 287 ==
LOC: NEPD 18:42 → NEDA 18:42 → HCPC 08-31 03:11
PROVIDERS: ADMIT Internal Medicine; ATTEND Internal Medicine
DX: Z87.891 Personal history of nicotine dependence; E78.00 Pure hypercholesterolemia, unspecified; E86.0 Dehydration; R00.1 Bradycardia, unspecified; I25.110 Atherosclerotic heart disease of native coronary artery with unstable angina pectoris; I10 Essential (primary) hypertension; Z95.5 Presence of coronary angioplasty implant and graft; E78.5 Hyperlipidemia, unspecified; I25.2 Old myocardial infarction
CPT/HCPCS: 71010; 71045; 80053; 80061; 81001; 83036; 84484; 85025; 85610; 85730; 93005; 93458; 99152; 99153; 99285; C1760; C1769; C1893; G0269; J1644; J2250; J3010; J7030; Q9967